=== PATIENT | female | born 1980 | race Caucasian/White ===

== ENCOUNTER 2020-01-17 07:20 | Day surgery (SDC) | payer OTHER ==
[2020-01-14 15:08] VITALS: BMI 25.2
[2020-01-17] MEDS ORDERED: ceFAZolin SODIUM 1 GM VIAL ONE (08:32)
[2020-01-17] MEDS ORDERED: LIDOCAINE HCL/PF 2% SDV 5ML VIAL ONE (08:32)
[2020-01-17] MEDS ORDERED: SODIUM CHLORIDE 0.9% P/F 10 ML VIAL IJ ONE (08:32)
[2020-01-17] MEDS ORDERED: PROPOFOL 20 ML ONE ×3 (08:32→10:41)
[2020-01-17] MEDS ORDERED: MIDAZOLAM HCL 2 MG/2 ML SINGLE DOSE VIAL ONE ×2 (09:01→10:39)
[2020-01-17] MEDS ORDERED: ROPIVACAINE HCL 0.5% 30ML VIAL ONE (09:01)
[2020-01-17] MEDS ORDERED: EPINEPHrine 1:1,000 1 MG/1 ML - 30ML VIAL (INJECTION) ONE (09:42)
[2020-01-17] MEDS ORDERED: ONDANSETRON 4 MG/2 ML VIAL IVPUSH PRN (10:48)
[2020-01-17] MEDS ORDERED: oxyCODONE HCL 5 MG TABLET PO PRN ×2 (10:48)
[2020-01-17] MEDS ORDERED: LACTATED RINGERS SOLUTION 1,000 ML IV SCH (11:00)
[2020-01-17] MEDS ORDERED: ONDANSETRON 4 MG/2 ML VIAL ONE (11:41)
[2020-01-17] MEDS ORDERED: DEXAMETHASONE SOD PHOSPHATE 4 MG/1 ML VIAL ONE (11:41)
[2020-01-17 13:28] VITALS: TEMP 97.9
[2020-01-17] MEDS ORDERED: oxyCODONE HCL 5 MG TABLET ONE (13:43)
[2020-01-17 14:41] VITALS: BP 124/69; PULSE 94
== END 2020-01-17 14:30 | disposition home or self-care (01) ==
LOC: EDSEX 07:20 → FASU 07:20
PROVIDERS: ATTEND Orthopaedic Surgery
PROC: 0RNJ4ZZ Release Right Shoulder Joint, Percutaneous Endoscopic Approach (ICD-10-PCS; 2020-01-17)
PROC: 0PB94ZZ Excision of Right Clavicle, Percutaneous Endoscopic Approach (ICD-10-PCS; 2020-01-17)
PROC: 0RBJ4ZZ Excision of Right Shoulder Joint, Percutaneous Endoscopic Approach (ICD-10-PCS; 2020-01-17)
PROC: 0LQ14ZZ Repair Right Shoulder Tendon, Percutaneous Endoscopic Approach (ICD-10-PCS; principal; 2020-01-17 11:43)
DX: M75.101 Unspecified rotator cuff tear or rupture of right shoulder, not specified as traumatic (principal); M75.01 Adhesive capsulitis of right shoulder; M75.41 Impingement syndrome of right shoulder; M19.011 Primary osteoarthritis, right shoulder; M24.111 Other articular cartilage disorders, right shoulder
CPT/HCPCS: 84703; 88304-TC; 94760